=== PATIENT | male | born 1950 | race Asian ===

== ENCOUNTER 2021-06-30 04:21 | Emergency (ER) | payer MEDICARE, OTHER ==
[~2021-06-30] VITALS: Ht 165.1 cm; Wt 68.0 kg
[2021-06-30] MEDS ORDERED: EPINEPHrine HCL 1 MG/10 ML SYRG IV ONE (04:22)
[2021-06-30] MEDS ORDERED: SODIUM BICARBONATE 8.4 % INJ 50ML VIAL IV ONE (04:22)
[2021-06-30 04:30] VITALS: BP 110/74
[2021-06-30] MEDS ORDERED: ALTEPLASE (RECOMBINANT) 100 MG ONE (05:13)
[2021-06-30] MEDS ORDERED: EPINEPHrine HCL 1 MG/10 ML SYRG ONE (05:13)
== END 2021-06-30 05:19 ==
LOC: EDBD 04:21 → EDSEX 04:21 → ER 04:21
DX: I46.9 Cardiac arrest, cause unspecified (principal); K21.9 Gastro-esophageal reflux disease without esophagitis; I10 Essential (primary) hypertension; E78.5 Hyperlipidemia, unspecified
CPT/HCPCS: 31500; 92950; 99291; J0171; J2997